=== PATIENT | female | born 1980 | race Two or more races ===

== ENCOUNTER 2017-08-11 06:47 | Emergency (ER) | payer OTHER ==
[~2017-08-11] VITALS: Ht 162.6 cm; Wt 77.1 kg
[~2017-08-11 06:47] MED LIST: ALPR.25 PO; AMOX500 PO; Antivert25 MG PO; Bactrim Ds Tab1 EACH PO; CEPH500 PO; CHLO25 PO; CLON.3 PO; Cyclobenzaprine5 MG PO; DIPH25 PO; ERYT.5TO RIGHTEYE; HYDACE5 PO; IBUPROFEN PRN; LORA1 PO; MULVITMINE PO; NAPR500 PO; ONDA4 PO; PHENTERMINE PO; POTCHL20ER PO; PRED20 PO; PROM25 PO; PROM25S PR; QUET100 PO; RANI150 PO; RXOXYACE PO; RXPROM25S PR; SULTRIDS PO; ZOLP5 PO; [UNRECOGNIZED DRUG - OTHER]
[2017-08-11] MEDS ORDERED: Mupirocin22 GM TOP (07:55)
[2017-08-11] MEDS ORDERED: Bactrim 400-801 EACH PO (07:55)
[2017-08-11] MEDS ORDERED: CEPH500 PO (07:55)
== END 2017-08-11 08:26 | disposition home or self-care (01) ==
LOC: ER 06:47
DX: L03.116 Cellulitis of left lower limb (principal); F17.210 Nicotine dependence, cigarettes, uncomplicated; Z79.899 Other long term (current) drug therapy
CPT/HCPCS: 87070; 87075; 87077; 87147; 87186; 87205; 99283

== ENCOUNTER 2020-07-04 19:11 | Emergency (ER) | payer OTHER ==
[~2020-07-04 19:11] MED LIST changes: +Bactrim 400-801 EACH PO; +Mupirocin22 GM TOP
== END 2020-07-04 19:55 | disposition left against medical advice (07) ==
LOC: ER 19:11
DX: Z53.21 Procedure and treatment not carried out due to patient leaving prior to being seen by health care provider (principal)

== ENCOUNTER → 2020-12-25 | Outpatient (CLI) | payer OTHER ==
[2020-12-28 16:11] LABS: HPV 16 Negative (Negative); HPV 18 Negative (Negative); HPV OTHER HR TYPES Negative (Negative)
[2020-12-29 00:06] LABS: CHLAMYDIA BY NAA Negative (Negative); GONOCOCCUS BY NAA Negative (Negative)
[2020-12-29 10:09] LABS: TRICH VAG BY NAA Positive (Negative)
== END ==
LOC: LAB SHORT 10:50 → LAB 10:50
PROVIDERS: Family Medicine
DX: Z12.4 Encounter for screening for malignant neoplasm of cervix (principal); Z11.59 Encounter for screening for other viral diseases
CPT/HCPCS: 87491; 87591; 87624; 87661; G0123

== ENCOUNTER 2021-03-05 00:53 | Emergency (ER) | payer OTHER ==
[~2021-03-05] VITALS: Ht 160 cm; Wt 65.8 kg
== END 2021-03-05 01:55 | disposition left against medical advice (07) ==
LOC: ER 00:53
DX: Z53.21 Procedure and treatment not carried out due to patient leaving prior to being seen by health care provider (principal)

== ENCOUNTER 2021-03-13 00:37 | Inpatient (IN) | payer OTHER ==
[~2021-03-13] VITALS: Ht 154.9 cm; Wt 62.7 kg
[2021-03-13 02:09] LABS: BASOPHILS ABSOLUTE AUTO 0.05 K/mm3 (0.00-0.23); BASOPHILS PERCENT AUTO 1 % (0-2); EOSINOPHILS ABSOLUTE AUTO 0.06 K/mm3 (0.00-0.68); EOSINOPHILS PERCENT AUTO 1 % (0-6); Hematocrit 36.3 % (33.0-51.0); Hemoglobin 12.7 g/dL (11.5-16.0); IMMATURE GRAN ABSOLUTE AUTO 0.02 K/mm3 (0.00-0.10); IMMATURE GRAN PERCENT AUTO 0 % (0-1); LYMPHOCYTES ABSOLUTE AUTO 1.62 K/mm3 (0.84-5.20); LYMPHOCYTES PERCENT AUTO 15 % (21-46); MONOCYTES ABSOLUTE AUTO 0.91 K/mm3 (0.16-1.47); MONOCYTES PERCENT AUTO 8 % (4-13); Mean Corpuscular HGB 31.5 pg (26.0-34.0); Mean Corpuscular Volume 90 fL (80-100); Mean Platelet Volume 8.8 fL (9.1-12.4); NEUTROPHILS ABSOLUTE AUTO 8.15 K/mm3 (1.96-9.15); NEUTROPHILS PERCENT AUTO 75 % (41-73); Platelet Count 245 K/mm3 (150-400); RDW Coefficient Variation 13.2 % (11.7-14.2); RDW Standard Deviation 44.2 fL (35.1-46.3); Red Blood Cell Count 4.03 M/mm3 (3.80-5.20); White Blood Cell Count 10.81 K/mm3 (4.00-11.30)
[2021-03-13 02:28] LABS: Alanine Aminotransfer (ALT/SGP 241 U/L (12-78); Albumin, Blood 3.6 g/dL (3.4-5.0); Albumin/Globulin Ratio 0.9 (0.8-1.8); Alk Phos 104 U/L (50-136); Anion Gap 7 mmol/L (6-16); Aspartate Aminotrans (AST/SGOT 226 U/L (12-37); Bilirubin, Total 0.8 mg/dL (0.1-1.0); Blood Urea Nitrogen 6 mg/dL (8-24); Bun/Creatinine Ratio 9.7 (12.0-20.0); CO2, Blood 25 mmol/L (21-32); Calcium, Blood 8.1 mg/dL (8.5-10.1); Chloride, Blood 104 mmol/L (98-108); Creatinine, Blood 0.62 mg/dL (0.40-1.00); Globulin, Blood 4.2 g/dL (2.2-4.0); Glomerular Filtration Rate >60 (60-); Glucose, Blood 102 mg/dL (70-99); Potassium, Blood 3.6 mmol/L (3.5-5.5); Sodium, Blood 136 mmol/L (136-145); Total Protein, Blood 7.8 g/dL (6.4-8.2)
--- NOTE | 2021-03-13 11:38 | NUR ---
ETHYL ALCOHOL, BLOOD RECEIVED T.O. FROM DR. TRIPATHI TO CHANGE CURRENT VAGUE ALCOHOL LAB ORDER TO BLOOD. ACCORDING TO LAB, URINE ALCOHOL IS A SEND OUT WHICH WILL TAKE SEVERAL DAYS TO RETURN. ORDER UPDATED.
[2021-03-13 11:43] LABS: U Amphetamine Screen DETECTED; U Barbituate Screen Not Detected; U Benzodiazapine Screen Not Detected; U Buprenorphine Screen Not Detected; U Cannabinoids Screen Not Detected; U Cocaine Screen Not Detected; U Methadone Screen Not Detected; U Methamphetamine Screen DETECTED; U Opiates Screen Not Detected; U Oxycodone Screen Not Detected; U Phencyclidine Screen Not Detected; U Propoxyphene Screen Not Detected
--- NOTE | 2021-03-13 18:37 | NUR ---
Shift Summary A/Ox4, has some anxiety. Patient requested to go outside to smoke. This RN explain non-smoking campus policy to patient and offered nicotine patch instead. Patient refused nicotine patient stating "I'm trying to clean my body out." CIWA score < 8 x 3. Denies headache. Up independently in room. Started mensus today, woman hygiene pads provided. Medicated for throbbing R hand pain x 2 with good effect. Patient to be NPO after midnight per Dr. Hodges for possible procedure pending effectiveness of abx. Patient informed of NPO status and verbalized understanding. C/O cough and congestion. Received T.O. from Dr. Fang for ocean spray, robitussin, and tessalon pearls. Also received T.O. to d/c continuous biox as per RT request. VSS, afebrile.
[2021-03-14 01:18] LABS: BASOPHILS ABSOLUTE AUTO 0.05 K/mm3 (0.00-0.23); BASOPHILS PERCENT AUTO 1 % (0-2); EOSINOPHILS ABSOLUTE AUTO 0.15 K/mm3 (0.00-0.68); EOSINOPHILS PERCENT AUTO 2 % (0-6); Hematocrit 38.9 % (33.0-51.0); Hemoglobin 13.1 g/dL (11.5-16.0); IMMATURE GRAN ABSOLUTE AUTO 0.02 K/mm3 (0.00-0.10); IMMATURE GRAN PERCENT AUTO 0 % (0-1); LYMPHOCYTES ABSOLUTE AUTO 1.78 K/mm3 (0.84-5.20); LYMPHOCYTES PERCENT AUTO 18 % (21-46); MONOCYTES ABSOLUTE AUTO 0.82 K/mm3 (0.16-1.47); MONOCYTES PERCENT AUTO 8 % (4-13); Mean Corpuscular HGB Conc 33.7 g/dL (31.5-36.5); Mean Corpuscular Volume 92 fL (80-100); NEUTROPHILS PERCENT AUTO 71 % (41-73); Platelet Count 229 K/mm3 (150-400); RDW Coefficient Variation 13.3 % (11.7-14.2); RDW Standard Deviation 45.2 fL (35.1-46.3); Red Blood Cell Count 4.22 M/mm3 (3.80-5.20); White Blood Cell Count 9.72 K/mm3 (4.00-11.30)
[2021-03-14 01:36] LABS: Anion Gap 7 mmol/L (6-16); Blood Urea Nitrogen 8 mg/dL (8-24); Bun/Creatinine Ratio 12.6 (12.0-20.0); CO2, Blood 26 mmol/L (21-32); Chloride, Blood 104 mmol/L (98-108); Creatinine, Blood 0.63 mg/dL (0.40-1.00); Glomerular Filtration Rate >60 (60-); Glucose, Blood 123 mg/dL (70-99); Potassium, Blood 3.7 mmol/L (3.5-5.5); Sodium, Blood 137 mmol/L (136-145)
[2021-03-14 01:44] LABS: Vancomycin, Trough 10.1 ug/mL (5.0-10.0)
--- NOTE | 2021-03-14 06:28 | NUR ---
SHIFT SUMMARY PT IS A 40 Y/O FEMALE, ADMITTED FOR R HAND CELLULITIS. SHE IS A&O X 4, INDEPENDENT IN THE ROOM. PT REPORTED EPISODE OF ANXIETY DURING THE NIGHT, AND REQUESTED MEDICATION. SHE WAS MEDICATED WITH PRN MELATONIN, AND SLEPT WELL THROUGH THE NIGHT OTHERWISE. TELE SHOWED NSR IN THE 80S. VITAL SIGNS OTHERWISE STABLE. PT DID NOT REQUIRE PAIN MEDICATION DURING THE NIGHT. NO OTHER ACUTE CHANGES IN PT CONDITION NOTED. WILL CONTINUE TO MONITOR AND TREAT PER EMAR UNTIL HAND OFF TO DAY SHIFT RN.
--- NOTE | 2021-03-14 18:07 | NUR ---
PATIENT IS AWAKE,ALERT AND ORIENTED TIME THREE.DENIES PAIN. PATIENT IS VERY, AND REQUESTING. NURSE EXPLAIN THE IMPORTANCE OF COMPLETING IV ANTIBIOTIC ORDER PER TO [facility]OM[facility]. PATIENT VERBALIZED UNDERSTANDING AND AGREE WITH THE TREATMENT PLAN. PATIENT IS NOW ON A REGULAR DIET. ADVISED NURSE AND PATIENT THAT THERE IS NO NEED FOR SURGICAL INTERVENTION TODAY, MD STATES WILL REASSESS TOMORROW.
--- NOTE | 2021-03-14 18:46 | NUR ---
PATIENT ALERT NURSE THAT SHE IS LEAVING, PATIENT MADE AWARE THAT SHE IS NOT DISCHARGE AND SHE WILL BE LEAVING AGAINST MEDICAL ADVISED. PATIENT VERBALIZED UNDESTANDING AND REQUEST AMA FORM. AND CHARGE NURSE DAVID MADE AWARE OF PATIENT REQUEST. IV AND TELE PACK REMOVED PER PROTOCOL. PATIENT WAS ADVISED TO RETURN [facility] WHEN NEEDED.
== END 2021-03-14 18:45 | disposition left against medical advice (07) | DRG 603 ==
LOC: ER 00:37 → MEDS 04:54
PROVIDERS: Family Medicine; Hospitalist; Student in an Organized Health Care Education/Training Program; ADMIT Internal Medicine
DX: L03.113 Cellulitis of right upper limb (principal); S66.324A Laceration of extensor muscle, fascia and tendon of right ring finger at wrist and hand level, initial encounter; R79.89 Other specified abnormal findings of blood chemistry; F10.10 Alcohol abuse, uncomplicated; F15.10 Other stimulant abuse, uncomplicated; F17.210 Nicotine dependence, cigarettes, uncomplicated; Z59.00 Homelessness unspecified; Z79.899 Other long term (current) drug therapy; Z86.14 Personal history of Methicillin resistant Staphylococcus aureus infection; Z28.21 Immunization not carried out because of patient refusal
CPT/HCPCS: 36415; 73201; 80048; 80053; 80202; 83605; 85025; 87040; 94760; 96365; 96366; 96375; 99284-25; A9270; G0480; J0690; J1885; J3370; J7030; J7050; Q9967

== ENCOUNTER 2021-11-14 22:40 | Inpatient (IN) | payer OTHER ==
[~2021-11-14] VITALS: Ht 154.9 cm; Wt 76.1 kg
[2021-11-14 23:59] LABS: BASOPHILS ABSOLUTE AUTO 0.08 K/mm3 (0.00-0.23); BASOPHILS PERCENT AUTO 1 % (0-2); EOSINOPHILS ABSOLUTE AUTO 0.09 K/mm3 (0.00-0.68); EOSINOPHILS PERCENT AUTO 1 % (0-6); Hematocrit 36.5 % (33.0-51.0); Hemoglobin 12.6 g/dL (11.5-16.0); IMMATURE GRAN ABSOLUTE AUTO 0.11 K/mm3 (0.00-0.10); IMMATURE GRAN PERCENT AUTO 1 % (0-1); LYMPHOCYTES PERCENT AUTO 17 % (21-46); MONOCYTES ABSOLUTE AUTO 1.08 K/mm3 (0.16-1.47); MONOCYTES PERCENT AUTO 7 % (4-13); Mean Corpuscular HGB 31.3 pg (26.0-34.0); Mean Corpuscular HGB Conc 34.5 g/dL (31.5-36.5); Mean Corpuscular Volume 91 fL (80-100); Mean Platelet Volume 8.5 fL (9.1-12.4); NEUTROPHILS ABSOLUTE AUTO 11.91 K/mm3 (1.96-9.15); NEUTROPHILS PERCENT AUTO 75 % (41-73); Platelet Count 360 K/mm3 (150-400); RDW Coefficient Variation 11.9 % (11.7-14.2); RDW Standard Deviation 39.9 fL (35.1-46.3); Red Blood Cell Count 4.02 M/mm3 (3.80-5.20); White Blood Cell Count 15.97 K/mm3 (4.00-11.30)
[2021-11-15 00:14] LABS: International Normalized Ratio 0.93; Prothrombin Time Results 9.8 Sec (9.7-11.5)
[2021-11-15 00:17] LABS: Albumin, Blood 3.1 g/dL (3.4-5.0); Albumin/Globulin Ratio 0.6 (0.8-1.8); Bilirubin, Total 0.6 mg/dL (0.1-1.0); Bun/Creatinine Ratio 8.8 (12.0-20.0); C-REACTIVE PROTEIN, EXT RANGE 10.2 mg/dL (0.000-0.300); Calcium, Blood 8.5 mg/dL (8.5-10.1); Creatinine, Blood 0.57 mg/dL (0.40-1.00); Globulin, Blood 5.5 g/dL (2.2-4.0); Magnesium, Blood 2.1 mg/dL (1.6-2.4); Potassium, Blood 3.6 mmol/L (3.5-5.5); Total Protein, Blood 8.6 g/dL (6.4-8.2)
[2021-11-15 01:57] LABS: Base Excess Venous -1.3 mmol/L; Bicarbonate Venous 23.4 mmol/L (24.0-30.0); PCO2 Venous 39.8 mmHg (38-42); pH Blood Venous 7.38 (7.34-7.37)
[2021-11-15 03:18] LABS: Influenza A, PCR NEGATIVE (NEGATIVE); Influenza B, PCR NEGATIVE (NEGATIVE); Resp Syncytial Virus, PCR NEGATIVE (NEGATIVE); SARS-Cov-2 (COVID-19) PCR, MMC NEGATIVE (NEGATIVE)
--- NOTE | 2021-11-15 05:00 | NUR ---
Pt Update Pt sleeps after arriving to room from ER. Pt arrousable with touch and this RN speaking loudly to pt. Fiance of pt answers most questions at bedside. When this RN asks pt about whether or not she consents to blood transfusion, pt appears to wake up and begin raising her voice speaking angrily to fiance at bedside. Pt tells fiance she told him to answer all the questions so she wouldn't have to keep getting woken up. Pt is agitated refuses to look or speak to this RN, when this RN tries to intervene in argument by notifying pt that she has to be asked about the blood transfusion. Pt raises voice when speaking to this RN, difficult to catch some of what pt says because she raises her voice and speaks rapidly. Pt does not want to be bothered and wants to be left to sleep. This RN leaves bedside after notifying pt and s/o that pt will be eventually moved to PCU rm 20.
[2021-11-15 06:47] LABS: BASOPHILS ABSOLUTE AUTO 0.07 K/mm3 (0.00-0.23); BASOPHILS PERCENT AUTO 1 % (0-2); EOSINOPHILS ABSOLUTE AUTO 0.23 K/mm3 (0.00-0.68); EOSINOPHILS PERCENT AUTO 2 % (0-6); Hematocrit 35.6 % (33.0-51.0); Hemoglobin 12.2 g/dL (11.5-16.0); IMMATURE GRAN ABSOLUTE AUTO 0.07 K/mm3 (0.00-0.10); IMMATURE GRAN PERCENT AUTO 1 % (0-1); LYMPHOCYTES ABSOLUTE AUTO 1.99 K/mm3 (0.84-5.20); LYMPHOCYTES PERCENT AUTO 18 % (21-46); MONOCYTES ABSOLUTE AUTO 0.93 K/mm3 (0.16-1.47); MONOCYTES PERCENT AUTO 8 % (4-13); Mean Corpuscular HGB 31.7 pg (26.0-34.0); Mean Corpuscular HGB Conc 34.3 g/dL (31.5-36.5); Mean Corpuscular Volume 93 fL (80-100); Mean Platelet Volume 8.3 fL (9.1-12.4); NEUTROPHILS ABSOLUTE AUTO 7.98 K/mm3 (1.96-9.15); NEUTROPHILS PERCENT AUTO 71 % (41-73); Platelet Count 320 K/mm3 (150-400); RDW Coefficient Variation 12.4 % (11.7-14.2); RDW Standard Deviation 41.8 fL (35.1-46.3); Red Blood Cell Count 3.85 M/mm3 (3.80-5.20); White Blood Cell Count 11.27 K/mm3 (4.00-11.30)
[2021-11-15 07:05] LABS: Albumin, Blood 2.3 g/dL (3.4-5.0); Albumin/Globulin Ratio 0.5 (0.8-1.8); Bilirubin, Total 0.5 mg/dL (0.1-1.0); Calcium, Blood 7.4 mg/dL (8.5-10.1); Creatinine, Blood 0.54 mg/dL (0.40-1.00); Globulin, Blood 4.6 g/dL (2.2-4.0); Potassium, Blood 3.8 mmol/L (3.5-5.5); Total Protein, Blood 6.9 g/dL (6.4-8.2)
--- NOTE | 2021-11-15 07:21 | NUR ---
SHIFT SUMMARY PT ORIENTED TO SITUATION, SURROUNDINGS, AND FOLLOWING INSTRUCTIONS ON ARRIVAL TO PCU FROM ER. PT APPEARS TO BE IN SEVERE PAIN W/TRANSFER OVER TO BED FROM ER [facility]. SHORTLY AFTER TRANSFER OVER, PT FALLS ASLEEP AND IS DIFFICULT TO GET ANSWERS TO QUESTIONS FROM. SAYS YES AND NO AND SHAKES HEAD YES AND NO BUT DOES NOT ANSWER VERBALLY TO MOST QUESTIONS. ZENON' TAKES OVER ANSWERING QUESTIONS AT BEDSIDE AND ASSISTING WITH PROVIDING HX. PT BECOMES EXTREMELY AGITATED WHEN THIS RN FINISHES QUESTIONING FOR ADMISSION WITH BLOOD TRANSFUSION QUESTIONS, PT BECOMES ANGRY AND VERBALLY LASHES OUT TO ZENON' ACCUSING HIM OF NOT ANSWERING QUESTIONS FOR HER LIKE HE IS SUPPOSED TO SO SHE WONT BE BOTHERED AND CAN REST. THIS RN LEAVES PT TO REST FOLLOWING OUTBURST. WHEN CHECKING BACK, PT CONTINUES TO SLEEP, NO VISIBLE SIGNS OF WITHDRAWAL WITNESSED BY THIS RN. ZENON STATES THAT PT WILL BECOME SHAKEY IN THE MORNING AFTER DRINKING USUALLY. LAST DRINK WAS AT AROUND 0000 PER ZENON'. PT LASHES OUT AGAIN AT [facility] WHEN THIS RN AND DAVID FROM LAB TO BEDSIDE FOR MORNING LAB DRAW. BP STABLE, HR 90'S WHILE LEFT UNDISTURBED IN ROOM WITH ZENON. PT HAD DENIED CP. THIS RN ABLE TO PALPATE LLE FOR PULSE AND FEEL EDEMA WITHOUT MUCH OF A RESPONSE FROM PT WHILE PT ASLEEP. PT SNORES WHILE ASLEEP, ZENON' STATES THIS IS BASELINE AND PT DOES NOT USE CPAP. RR 18-24. PT'S ZENON REPORTS PT HAS A HX OF METH USE. STATES SHE USES SEVERAL TIMES A MONTH BUT HAS BEEN CUTTING BACK. ZENON ALSO STATES THAT PT HAS A HX OF BIPOLAR.
--- NOTE | 2021-11-15 10:19 | NUR ---
Am note Pt alert, crying a times, irritable; ciwa 7; oriented to person, place and family, unwilling to answer additional orientations questions at this time. Pt reporting 9/10 pain to lle, medicated with dilaudid 0.5mg iv with positive results. Pt appears to be sleeping at this time. Pt denies chest pain/pressure, sob, nasuea, dizziness and numb/tingling at this time. Pt tele sinus tach, bp stable. Spo2 >90% on ra, breathing even and unlabored. Abd soft nontender, denies nausea at this time. Vss. No other acute changes noted. Will continue to monitor. Plans for surgery this afternoon, pt remains npo.
--- NOTE | 2021-11-15 17:34 | NUR ---
Shift Summary Pt continues to report pain to lle, medicated per orders. Pt ciwa 6-8 t/o shift. Pt appears to be sleeping intermittently t/o shift. Pt remain npo t/o shift and taken to surgery this evening. Vss. No other acute changes noted. Will continue to monitor unitl report given to oncoming rn.
[2021-11-16 02:23] LABS: BASOPHILS ABSOLUTE AUTO 0.03 K/mm3 (0.00-0.23); BASOPHILS PERCENT AUTO 0 % (0-2); EOSINOPHILS PERCENT AUTO 0 % (0-6); Hematocrit 33.9 % (33.0-51.0); Hemoglobin 11.7 g/dL (11.5-16.0); IMMATURE GRAN ABSOLUTE AUTO 0.05 K/mm3 (0.00-0.10); IMMATURE GRAN PERCENT AUTO 0 % (0-1); LYMPHOCYTES ABSOLUTE AUTO 0.93 K/mm3 (0.84-5.20); LYMPHOCYTES PERCENT AUTO 8 % (21-46); MONOCYTES ABSOLUTE AUTO 0.21 K/mm3 (0.16-1.47); MONOCYTES PERCENT AUTO 2 % (4-13); Mean Corpuscular HGB 31.8 pg (26.0-34.0); Mean Corpuscular HGB Conc 34.5 g/dL (31.5-36.5); Mean Corpuscular Volume 92 fL (80-100); Mean Platelet Volume 8.5 fL (9.1-12.4); NEUTROPHILS ABSOLUTE AUTO 11.12 K/mm3 (1.96-9.15); NEUTROPHILS PERCENT AUTO 90 % (41-73); Platelet Count 329 K/mm3 (150-400); RDW Coefficient Variation 11.9 % (11.7-14.2); RDW Standard Deviation 40.8 fL (35.1-46.3); Red Blood Cell Count 3.68 M/mm3 (3.80-5.20); White Blood Cell Count 12.34 K/mm3 (4.00-11.30)
[2021-11-16 02:40] LABS: Bun/Creatinine Ratio 16.8 (12.0-20.0); Calcium, Blood 8.1 mg/dL (8.5-10.1); Creatinine, Blood 0.59 mg/dL (0.40-1.00); Potassium, Blood 3.9 mmol/L (3.5-5.5)
--- NOTE | 2021-11-16 07:20 | NUR ---
SHIFT SUMMARY PT AOX4 T/O SHIFT. PT COOPERATIVE AND PLEASANT WITH CARE. WITHDRAWAL SX WELL CONTROLLED WITH LIBIRUM AND X1 DOSE OF ATIVAN. PT SLEEPS FOLLOWING DOSE OF ATIVAN THIS AM. S/O SLEEPS IN CHAIR AT BEDSIDE. PT CALLS APPROPRIATELY WITH CALL LIGHT TO GET UP TO BEDSIDE COMMODE WITH ASSIST. DENIES ALTERED SENSATION IN LLE. STATES PAIN IS BETTER POST-OP, STATES PAIN CHANGED FROM BURNING OF YESTERDAY TO MORE OF AN ACHING PAIN. PAIN WELL CONTROLLED PER PT TOLERABLE PAIN LEVEL WITH PO NORCO. PT IS OPTIMISTIC TO BE SOBER AFTER LEAVING HOSPITAL AND VERBALIZES DESIRE TO BE CLEAN. PT STATES THIS INFECTION HAS BEEN A GOOD OPPORTUNITY FOR HER TO GET SOBER. PT ABLE TO TRANSFER TO BEDSIDE COMMODE WITHOUT WEIGHT BEARING ON L LEG AND TOLERATES WOUND VAC T/O SHIFT. SWELLING APPEARS DECREASED IN LEG FROM PRIOR SHIFT. PT HR MAINTAINS IN 90'S. VSS T/O SHIFT.
--- NOTE | 2021-11-16 08:43 | NUR ---
Am note Pt responding to verbal stimuli, oriented to person, place, event and time. Pt slow to respond, falling back to sleep at times. Pt up with 1 person assist to bsc, pt not putting full weight on left leg. Pt denies pain, chest pain/pressure, nausea, dizziness and numb/tingling. Tele sinus 80-90's at rest, touching 100's with activity, bp stable. Ls clear, diminished to bases, spo2 >90% on ra. Abd soft nontender with normoactive bt. Left leg less swollen then previous shift, wound vac with rober bandage in place. Pt receiving iv antibiotics. CIWA score of 8, medicated with librium. Other vss. No other acute changes noted. Will continue to monitor.
--- NOTE | 2021-11-16 17:08 | NUR ---
Shift Summary Pt more alert this afternoon and evening. CIWA 8 or less t/o shift. Medicated pt for pain to left lower extremity. Wound vac in place. Per Dr Polk, no tele and no CBGs at this time. Other Vss. No other acute changes noted. Will continue to monitor unitl report given to oncoming rn.
--- NOTE | 2021-11-17 05:01 | NUR ---
SHIFT SUMMARY PT A&OX4, PLEASANT AND COOPERATIVE. NO ACUTE CHANGES, VSS. MEDICATED FOR PAIN ONCE WITH TORADOL/TYLENOL. SBA TO BSC. TOLERATING PO INTAKE, NO N/V. CIWA 8 OR LESS T/O SHIFT. CONTINUED ORDERED ABX. WOUND VAC IN PLACE AND COMPRESSED. CALLS APPROPRIATELY, CALL LIGHT WITHIN REACH.
--- NOTE | 2021-11-17 09:42 | NUR ---
WOUND VAC DRESSING CHANGED. PHOTO AND ASSESSMENT IN HARD CHART. ONE PIECE OF BLACK FOAM REMOVED. MEPITEL TO EXPOSED TENDON WITH ONE PIECE OF BLACK FOAM APPLIED. VAC SET TO 120 MMHG. CANISTER NOT CHANGED. PT TOLERATED WELL
--- NOTE | 2021-11-17 10:59 | NUR ---
RECIEVED PT REPORT AWAITING TRASFER FROM [facility]
--- NOTE | 2021-11-17 11:28 | NUR ---
Transfer note Assumed care of patient at approx 0700. Alert, oriented x4. CIWA <8 this am. Pt reporting pain to lle, medicated X1 with norco, pt asking for additional pain medciations, offered toradol, but pt declined. Pt denies chest pain/pressure, sob, nausea, dizziness and numb/tingling. Jenny to room this am, wound vac dressing changed. Vss. No other acute changes noted. Report given to tori Waldrop assuming care of patient. Pt transfered to room 224 at 1110.
--- NOTE | 2021-11-17 17:42 | NUR ---
SHIFT SUMMARY PT A&OX4 AND IN PLEASENT MOOD. POD #2 I&D AND WOUND VAC PLACEMENT LLE. DIEGO @ BEDSIDE T/O SHIFT, PER PT TRANSFER REPORT VIA PCU DIEGO HAS BEEN ASSISTING W/ CARE AND "KEEPING PT CALM". PAIN MEDICATED PER EMAR. TOLERATING PO INTAKE WELL, DENIES N/V. SHOWERED THIS SHIFT. WOUND VAC DRESSING CHANGED THIS AM-GOOD SUCTION AND DRAINING WELL, LLE REDDNESS AND SWELLING NOTED. VSS. CDIFF PANEL ORDERED DUE TO WATERY STOOL. CALL LIGHT W/IN REACH. SBA.
[2021-11-17 22:35] LABS: C DIFFICILE DNA NEGATIVE (Negative)
--- NOTE | 2021-11-18 04:35 | NUR ---
POD2 FOR AN I.N.D OF THE LLE AND WOUND VAC PLACEMENT. VSS. WOUND VAC REMAINS COMPRESSED, MINIMAL DRAINAGE NOTED. LLE REMAINS RED, EDEDAMOUS, AND TENDER. SENSATION AND CIRCULATION REMAINS INTACT PT SLEPT WELL T/O THE NIGHT. MEDICATED FOR PAIN WITH TORADOL. PT C/O MULTIPLE BOUTS OF LIQUID STOOL, STOOL SAMPLE RESULTS WERE NEGATIVE FOR CDIFF. VOIDING W/O DIFFICULTY. PT AMBULATED WITH MINIMAL ASSISTANCE T/O THE NIGHT. LASHAWNWA PERFORMED TONIGHT WITH A SCORE OF 0. PLAN FOR THE PT TO D/C TODAY TO HER BOYFRIENDS SISTERS HOUSE WITH ORAL ANTIBOTICS. THE PATIENT IS CURRENTLY SLEEPING, IN NO DISTRESS, CALL LIGHT IN REACH.
[2021-11-18 13:13] LABS: BASOPHILS ABSOLUTE AUTO 0.08 K/mm3 (0.00-0.23); BASOPHILS PERCENT AUTO 1 % (0-2); EOSINOPHILS ABSOLUTE AUTO 0.29 K/mm3 (0.00-0.68); EOSINOPHILS PERCENT AUTO 4 % (0-6); Hematocrit 36.6 % (33.0-51.0); Hemoglobin 12.2 g/dL (11.5-16.0); IMMATURE GRAN ABSOLUTE AUTO 0.18 K/mm3 (0.00-0.10); IMMATURE GRAN PERCENT AUTO 2 % (0-1); LYMPHOCYTES ABSOLUTE AUTO 2.91 K/mm3 (0.84-5.20); LYMPHOCYTES PERCENT AUTO 35 % (21-46); MONOCYTES ABSOLUTE AUTO 0.58 K/mm3 (0.16-1.47); MONOCYTES PERCENT AUTO 7 % (4-13); Mean Corpuscular HGB 31.3 pg (26.0-34.0); Mean Corpuscular HGB Conc 33.3 g/dL (31.5-36.5); Mean Corpuscular Volume 94 fL (80-100); NEUTROPHILS ABSOLUTE AUTO 4.29 K/mm3 (1.96-9.15); NEUTROPHILS PERCENT AUTO 51 % (41-73); Platelet Count 377 K/mm3 (150-400); RDW Coefficient Variation 12.2 % (11.7-14.2); RDW Standard Deviation 41.8 fL (35.1-46.3); White Blood Cell Count 8.33 K/mm3 (4.00-11.30)
--- NOTE | 2021-11-18 17:51 | NUR ---
SHIFT SUMMARY POD 3 I&D LEFT LEG WOUND VAC PATENT AND FOAM COMPRESSED DURING SHIFT. PT LEFT FOOT VERY SWOLLEN, REDNESS AROUND WOUND VAC SITE. SPOKE WITH DR. PATEL, ORDERS RECIEVED FOR CT SCAN WITH CONTRAST. PATIENT HAS BEEN IN BED FOR MOST OF SHIFT REPORTS SIGNIFICANT INCREASE IN PAIN WHEN SHE ATTEMPTS TO STAND AND TRANSFER. TOLERATING PO WELL. MEDICATION PER EMAR, PT REPORTS TOLERABLE.
--- NOTE | 2021-11-19 04:08 | NUR ---
SHIFT SUMMARY NO ACUTE CHANGES THIS SHIFT. VSS. WOUND VAC TO LEFT LEG REMAINS INTACT AND COMPRESSED. CONTINUING TO ENCOURAGE ELEVATION. PAIN MANAGED WITH TORADOL/PERCOCET PER ORDERS. ROSI REG DIET. INDEP TO BSC. CALL LIGHT WITHIN REACH.
[2021-11-19 16:24] LABS: SARS-Cov-2 (COVID-19) PCR, MMC NEGATIVE (NEGATIVE)
--- NOTE | 2021-11-19 16:49 | NUR ---
DISCHARGE SUMMARY PATIENT ALERT AND ORIENTED. ANXIOUS AT TIMES BUT EASILY REASSURES. TOLERATING REGULAR DIET AND LIQUIDS. IND TO BSC. WOUND VAC TO LLE, CHANGED THIS SHIFT BY GYMNASTICS COACH. LLE AROUND WOUND IS RED AND SWOLLEN. CONTINUE IV ABX. PAIN CONTROLLED WITH PO PAIN MEDS. DISCHARGED TO SNF AT 1640. REPORT CALLED TO SNF RN. LEFT UNIT VIA MEDICAL TRANSPORT.
--- NOTE | 2021-11-19 17:25 | NUR ---
WOUND VAC DRESSING CHANGED. ONE PIECE MEPITEL ONE PIECE BLACK FOAM REMOVED. ONE PIECE MEPITEL AND ONE PIECE OF BLACK FOAM REAPPLIED. VAC SET TO 120 MMHG. PT TOLERATED WELL.
== END 2021-11-19 16:40 | DRG 853 ==
LOC: ER 22:40 → PCU 11-15 03:14 → SURS 11-15 03:14 → PCU 11-15 04:40 → SURS 11-17 11:51
PROVIDERS: Family Medicine; Internal Medicine; Orthopaedic Surgery; Student in an Organized Health Care Education/Training Program; ADMIT Internal Medicine
PROC: 3E03329 Introduction of Other Anti-infective into Peripheral Vein, Percutaneous Approach (ICD-10-PCS; 2021-11-15)
PROC: 0JBP0ZZ Excision of Left Lower Leg Subcutaneous Tissue and Fascia, Open Approach (ICD-10-PCS; principal; 2021-11-15 16:00)
DX: A40.0 Sepsis due to streptococcus, group A (principal); M72.6 Necrotizing fasciitis; E87.1 Hypo-osmolality and hyponatremia; L03.116 Cellulitis of left lower limb; F10.239 Alcohol dependence with withdrawal, unspecified; I96 Gangrene, not elsewhere classified; Z20.822 Contact with and (suspected) exposure to COVID-19; B19.20 Unspecified viral hepatitis C without hepatic coma; F17.210 Nicotine dependence, cigarettes, uncomplicated; R73.9 Hyperglycemia, unspecified; F15.90 Other stimulant use, unspecified, uncomplicated; Z79.899 Other long term (current) drug therapy; Z79.2 Long term (current) use of antibiotics; Z98.890 Other specified postprocedural states
CPT/HCPCS: 0241U; 36415; 73701; 80048; 80053; 80202; 81025; 82803; 82947; 83036; 83605; 83735; 84145; 85025; 85610; 85651; 85730; 86140; 86850; 86900; 86901; 87040; 87070; 87075; 87147; 87205; 87493; 93005; 93010; 94762; 96365; 96366; 96367; 96375; 99285-25; A9270; J0690; J1100; J1170; J1650; J1885; J2060; J2405; J2543; J2704; J3010; J3370; J3411; J7030; J7050; J7120; Q9967; U0004

== ENCOUNTER 2021-11-19 21:27 | Emergency (ER) | payer OTHER ==
[~2021-11-19] VITALS: Ht 154.9 cm; Wt 72.6 kg
== END 2021-11-20 00:36 | disposition home or self-care (01) ==
LOC: ER 21:27
DX: Z48.00 Encounter for change or removal of nonsurgical wound dressing (principal); F17.200 Nicotine dependence, unspecified, uncomplicated
CPT/HCPCS: 99281

== ENCOUNTER 2022-01-01 19:12 | Emergency (ER) | payer OTHER ==
[2022-01-02] MEDS ORDERED: GABA300 PO (00:16)
[2022-01-02] MEDS ORDERED: CEPH500 PO (00:16)
[2022-01-02] MEDS ORDERED: IBUP800 PO (00:16)
== END 2022-01-02 00:39 | disposition home or self-care (01) ==
DX: L03.116 Cellulitis of left lower limb (principal); L97.929 Non-pressure chronic ulcer of unspecified part of left lower leg with unspecified severity; F17.200 Nicotine dependence, unspecified, uncomplicated

== ENCOUNTER 2022-01-23 15:00 | Inpatient (IN) | payer OTHER ==
[~2022-01-23] VITALS: Ht 152.4 cm; Wt 78.0 kg
[~2022-01-23 15:00] MED LIST changes: +GABA300 PO; +IBUP800 PO
[2022-01-23 15:52] LABS: BASOPHILS ABSOLUTE AUTO 0.05 K/mm3 (0.00-0.23); BASOPHILS PERCENT AUTO 0 % (0-2); EOSINOPHILS ABSOLUTE AUTO 0.09 K/mm3 (0.00-0.68); EOSINOPHILS PERCENT AUTO 1 % (0-6); Hemoglobin 12.2 g/dL (11.5-16.0); IMMATURE GRAN ABSOLUTE AUTO 0.06 K/mm3 (0.00-0.10); IMMATURE GRAN PERCENT AUTO 0 % (0-1); LYMPHOCYTES ABSOLUTE AUTO 1.75 K/mm3 (0.84-5.20); LYMPHOCYTES PERCENT AUTO 13 % (21-46); MONOCYTES ABSOLUTE AUTO 1.17 K/mm3 (0.16-1.47); MONOCYTES PERCENT AUTO 9 % (4-13); Mean Corpuscular HGB 31.2 pg (26.0-34.0); Mean Corpuscular HGB Conc 34.9 g/dL (31.5-36.5); Mean Corpuscular Volume 90 fL (80-100); Mean Platelet Volume 8.3 fL (9.1-12.4); NEUTROPHILS ABSOLUTE AUTO 10.41 K/mm3 (1.96-9.15); NEUTROPHILS PERCENT AUTO 77 % (41-73); Platelet Count 362 K/mm3 (150-400); RDW Coefficient Variation 12.3 % (11.7-14.2); Red Blood Cell Count 3.91 M/mm3 (3.80-5.20); White Blood Cell Count 13.53 K/mm3 (4.00-11.30)
[2022-01-23 16:06] LABS: Albumin/Globulin Ratio 0.6 (0.8-1.8); Bilirubin, Total 0.4 mg/dL (0.1-1.0); Bun/Creatinine Ratio 11.6 (12.0-20.0); Calcium, Blood 8.2 mg/dL (8.5-10.1); Creatinine, Blood 0.6 mg/dL (0.40-1.00); Globulin, Blood 4.9 g/dL (2.2-4.0); Potassium, Blood 3.9 mmol/L (3.5-5.5); Total Protein, Blood 7.9 g/dL (6.4-8.2)
[2022-01-24 05:48] LABS: Prothrombin Time Results 10.5 Sec (9.7-11.5)
[2022-01-24 06:02] LABS: Albumin, Blood 2.4 g/dL (3.4-5.0); Albumin/Globulin Ratio 0.5 (0.8-1.8); Bilirubin, Total 0.5 mg/dL (0.1-1.0); Bun/Creatinine Ratio 12.8 (12.0-20.0); Calcium, Blood 7.9 mg/dL (8.5-10.1); Creatinine, Blood 0.62 mg/dL (0.40-1.00); Globulin, Blood 4.4 g/dL (2.2-4.0); Potassium, Blood 3.9 mmol/L (3.5-5.5); Total Protein, Blood 6.8 g/dL (6.4-8.2)
[2022-01-24 06:40] LABS: BASOPHILS ABSOLUTE AUTO 0.04 K/mm3 (0.00-0.23); BASOPHILS PERCENT AUTO 0 % (0-2); EOSINOPHILS ABSOLUTE AUTO 0.17 K/mm3 (0.00-0.68); EOSINOPHILS PERCENT AUTO 2 % (0-6); Hematocrit 34.3 % (33.0-51.0); Hemoglobin 11.5 g/dL (11.5-16.0); IMMATURE GRAN ABSOLUTE AUTO 0.06 K/mm3 (0.00-0.10); IMMATURE GRAN PERCENT AUTO 1 % (0-1); LYMPHOCYTES ABSOLUTE AUTO 2.46 K/mm3 (0.84-5.20); LYMPHOCYTES PERCENT AUTO 24 % (21-46); MONOCYTES ABSOLUTE AUTO 0.99 K/mm3 (0.16-1.47); MONOCYTES PERCENT AUTO 10 % (4-13); Mean Corpuscular HGB 30.9 pg (26.0-34.0); Mean Corpuscular HGB Conc 33.5 g/dL (31.5-36.5); Mean Corpuscular Volume 92 fL (80-100); Mean Platelet Volume 8.5 fL (9.1-12.4); NEUTROPHILS ABSOLUTE AUTO 6.51 K/mm3 (1.96-9.15); NEUTROPHILS PERCENT AUTO 64 % (41-73); Platelet Count 332 K/mm3 (150-400); RDW Coefficient Variation 12.5 % (11.7-14.2); RDW Standard Deviation 42.4 fL (35.1-46.3); Red Blood Cell Count 3.72 M/mm3 (3.80-5.20); White Blood Cell Count 10.23 K/mm3 (4.00-11.30)
--- NOTE | 2022-01-24 19:25 | NUR ---
PT ADMITTED FROM ED TO ROOM 341 AT 1624. A/O X4, AMBULATED TO BATHROOM AND THAN TO BED, STEADY ON FEET. ORIENTED TO ROOM SET UP AND SAFETY. LLE WRAPPED IN KERLEX. PT ASKED FOR CHEESE AND CRACKERS AND A PEPSI. PT'S S.O PRESENT AND ATTENTIVE TO PT'S NEEDS.
--- NOTE | 2022-01-24 19:27 | NUR ---
SUMMARY- PT ADMITTED 1623. A/O X4, INDEPENDANT IN ROOM. S.O. IN ROOM AND STAYING THE NIGHT FOR THE PT'S SUPPORT RELATED TO PTSD AND ANXIETY. DRESSING CHANGED 1814, PREMEDICATED WITH FENT 25MCG. PICTURES TAKEN. 2 OPEN ULCERATIONS, PROX WOUND 7X6CM, PINK BEEFY WOUND BED NO ESCHAR. 2ND ULCERATION APPROX 4X6CM 95% YELLOW ESCHAR. SKIN SURROUNDING BOTH WOUNDS ERYTHEMATIC, PURPLE WITH EDEMA +2-3. REINFORCED STEEL PLACING SUPERVISOR <3SEC. STATES MILD NUMBNESS IN FOOT. PPP. PT TOLERATING FOOD AND FLUIDS. AWARE SHE IS TO BE NOP AFTER MIDNIGHT. FAMILY LAW MEDIATOR UNAVAILABLE, THIS RN REDRESSED WITH A WET-DRY, COVERED WITH CHICKEN SKIN. DR SARMIENTO TO [place] IN THE AM.
[2022-01-24 19:30] LABS: Vancomycin, Trough 15.5 ug/mL (5.0-10.0)
--- NOTE | 2022-01-25 07:16 | NUR ---
Shift Summary Pt NPO since 199 pending surgery consult evaluation. C/O pain in LLE, especially during and after ambulation, medicated per EMAR. Boyfriend stayed the night in the room to help with anxiety, OK'd by charge nurse. No S/S of ETOH withdrawal t/o the night. LLE wound dressing C/D/I. Rcvd IV Vancomyacin and NS @ 75 as ordered. VSS, pleasant and cooperative with care.
--- NOTE | 2022-01-25 13:11 | NUR ---
History, Chart, Medications and Allergies reviewed before start of procedure.Lungs clear T/O to Auscultation. Patient confirms NPO status and agrees with scheduled surgery. Pre-Op teaching done. Pt verbalizes understanding.
--- NOTE | 2022-01-25 14:37 | NUR ---
01/25/22 1437 Agatha Roberts PT ON SCHEDULED ANTIBIOTICS AND RECIEVED PRIOR TO ARRIVAL TO OR.
--- NOTE | 2022-01-25 20:20 | NUR ---
PT RETURNED PROM PACU 1540, PT GROGGY BUT ALERT AND VERBAL, STATES PAIN IS TOLERABLE. OBTAINED VS AND WILL CONT WITH POST PROCEDURAL VS FOR 24HRS. WOUND VAC IN PLACE AND PATENT.
--- NOTE | 2022-01-25 20:21 | NUR ---
SUMMARY- PT HAD I&D TODAY CONNECTED TO WOUND VAC. VSS. PAIN MANAGED AT FIRST WITH FENT THAN SWITCHED TO ORAL OXYCOCONE 10MG, SO FAR EFFECTIVE. PT TOLERATING FOOD AND FLUIDS. VOIDING WITHOUT DIFFICULTY. USES CALL LIGHT TO MAKE NEEDS KNOWN. REPORT TO TARYN OSWALD RN.
[2022-01-26 05:09] LABS: BASOPHILS ABSOLUTE AUTO 0.03 K/mm3 (0.00-0.23); BASOPHILS PERCENT AUTO 1 % (0-2); EOSINOPHILS ABSOLUTE AUTO 0.32 K/mm3 (0.00-0.68); EOSINOPHILS PERCENT AUTO 5 % (0-6); Hematocrit 34.6 % (33.0-51.0); Hemoglobin 11.5 g/dL (11.5-16.0); IMMATURE GRAN ABSOLUTE AUTO 0.05 K/mm3 (0.00-0.10); IMMATURE GRAN PERCENT AUTO 1 % (0-1); LYMPHOCYTES ABSOLUTE AUTO 2.29 K/mm3 (0.84-5.20); LYMPHOCYTES PERCENT AUTO 37 % (21-46); MONOCYTES ABSOLUTE AUTO 0.56 K/mm3 (0.16-1.47); MONOCYTES PERCENT AUTO 9 % (4-13); Mean Corpuscular HGB 30.6 pg (26.0-34.0); Mean Corpuscular HGB Conc 33.2 g/dL (31.5-36.5); Mean Corpuscular Volume 92 fL (80-100); Mean Platelet Volume 8.1 fL (9.1-12.4); NEUTROPHILS ABSOLUTE AUTO 2.98 K/mm3 (1.96-9.15); NEUTROPHILS PERCENT AUTO 48 % (41-73); Platelet Count 342 K/mm3 (150-400); RDW Standard Deviation 40.8 fL (35.1-46.3); Red Blood Cell Count 3.76 M/mm3 (3.80-5.20); White Blood Cell Count 6.23 K/mm3 (4.00-11.30)
[2022-01-26 05:38] LABS: Bun/Creatinine Ratio 11.5 (12.0-20.0); Calcium, Blood 8.3 mg/dL (8.5-10.1); Creatinine, Blood 0.7 mg/dL (0.40-1.00); Potassium, Blood 3.6 mmol/L (3.5-5.5)
--- NOTE | 2022-01-26 06:38 | NUR ---
Shift Summary Pt returned from I and D surgery during the day, wound vac is in place. Wound vac had a leak early on in the shift, leak was fixed. Pt rcvd IV Toridol which was highly effective at relieving her LLE pain, and then recieved 10mg Oxy towards the end of the shift. Pt had a strong appitite and tolerated snacks well. Rcvd IV Vancomyacin. Q4 post op vital signs, VSS. AoX4, independent in room, pleasant and cooperative with care.
[2022-01-26 11:45] LABS: Vancomycin, Trough 20.3 ug/mL (5.0-10.0)
--- NOTE | 2022-01-26 15:41 | NUR ---
REPORT GIVEN TO CORRINE SIM
--- NOTE | 2022-01-27 04:21 | NUR ---
SHIFT SUMMARY: Pt A/Ox4 and call light appropriate. She reports pain in her LLE that is severe. PRN oxy and fentanyl given per emar. She denies numbness/tingling in LLE, wound vac appears intact, skin intact and warm to touch. Her left foot has slight swelling, pedal pulse intact. Vanco given per emar. She is independant in her room. Voiding adequate amounts.
--- NOTE | 2022-01-27 13:43 | NUR ---
WOUND CARE WOUND CARE CLINIC WILL BE HERE IN THE MORNING TO CHANGE WOUND VAC AND TAKE PHOTOS. CONTINUE POC.
--- NOTE | 2022-01-27 17:26 | NUR ---
EVENING NOTE PT RESTING QUIETLY WITH BOYFRIEND. VSS. MEDICATED FOR PAIN X2 WITH OXYCINTIN. SHE REFUSED THE ADDITION OF TYLENOL. LEFT LE WOUND VAC INTACT. PLAN TO CHANGE OUT TOMORROW WITH PICTURES. GOOD APPETITE. LUNGS DECREASED T/O. RA. UP TO BATHROOM AD FILOMENA. DR SARMIENTO SAW HER EARLIER. NO NEW ORDERS. CONTINUE POC.
[2022-01-27 19:27] LABS: Vancomycin, Trough 12.9 ug/mL (5.0-10.0)
--- NOTE | 2022-01-28 04:23 | NUR ---
SHIFT SUMMARY: Pt A/Ox4 and call light appropriate. Overnight pt had moderate-severe pain, she recieved oxy Q4h as needed. Wound vac has minimal output. Denies numbness/tingling in LLE. Left foot is +1 edema, pedal pulse intact. She is hoping to d/c today.
--- NOTE | 2022-01-28 12:53 | NUR ---
WOUND CARE WOUND VAC DRESSING CHANGED TODAY. PT PREMEDICATED WITH IV PAIN MEDICATION. SHE DID NOT TOLERATE DRESSING REMOVAL WELL. LIDOCAINE APPLIED TO WOUND BED AND ALLOWED SIT FOR 15 MIN. DRESSING THEN REMOVED. PT STILL PAINFUL BUT AT A TOLERABLE LEVEL. TWO PIECES OF BLACK FOAM REMOVED, WOUND BEDS CLEANSED WITH NS AND THREE PIECES OF BLACK FOAM REAPPLIED. VAC SET TO CONTINUOUS 120 MMHG
--- NOTE | 2022-01-29 07:35 | NUR ---
SHIFT SUMMARY A&O X4, VSS. PAIN MANAGE WITH PRN OXY. TOLERATING WELL. INDEPENDENT WITH FWW IN ROOM. WOUND VAC DRSG C/D/I. RECEIVING SCHEDULED IV VANC. SIGNIFICANT OTHER AT BEDSIDE.
--- NOTE | 2022-01-29 08:00 | NUR ---
pt laying in bed awake a/ox3, complains her iv keeps beeping, the site is tender, will have another placed, lungs are clear t/o, resp even and unlabored, no cough noted, hrr, no edema noted, ppp +2, btx4, reports bm last night, skin has wound vac to lle, site is clear and no leakes noted, maew, up indep, fabiano, medicated for pain, call light in reach.
[2022-01-29 12:19] LABS: Creatinine, Blood 0.71 mg/dL (0.40-1.00); Vancomycin, Trough 18.7 ug/mL (5.0-10.0)
--- NOTE | 2022-01-29 18:20 | NUR ---
no acute changes this shift. call light in reach. boyfriend has been in room all day.
--- NOTE | 2022-01-29 22:50 | NUR ---
THIS RN WAS ALERTED BY ANOTHER STAFF MEMBER THAT THE PATIENT HAD JUST BEEN SEEN ENTERING THE ELEVATOR AT APPROX 1930; JUST AFTER SHIFT CHANGE. THIS RN ALERTED SECURITY AND FOUND PATIENT SMOKING WITH HER SIGNIFICANT OTHER (S.O.) IN HIS CAR. S.O. STATED HE WOULD BRING PATIENT BACK INSIDE WHEN THEY WERE DONE SMOKING; THIS RN REPLIED THAT THE PATIENT NEEDED TO COME BACK INSIDE IMMEDIATELY AND INFORMED S.O. THAT VISITING HOURS WERE OVER AND REASSURED S.O. THAT HE COULD RETURN IN THE MORNING. PATIENT STATED THAT SHE WOULD ONLY COME INSIDE LONG ENOUGH TO REMOVE WOUND VAC MACHINE AND POWERGLIDE IV. THIS RN ENCOURAGED PATIENT TO STAY HOSPITALIZED AND CONTINUE TREATMENT; HOWEVER; PATIENT SIGNED AMA FORM AND SECURITY INTELLIGENCE ANALYST REMOVED IV AND WOUND VAC. PATIENT REFUSED WOUND VAC DRSG/TUBING REMOVAL - ONLY MACHINE REMOVED FROM LLE. PATIENT ASSISTED TO ER DOORS WITH ALL BELONGINGS. PATIENT DENIES ANY BELONGINGS LEFT IN SAFE AT THIS TIME.
== END 2022-01-29 20:03 | disposition left against medical advice (07) | DRG 854 ==
LOC: ER 15:00 → ERHOLD 20:04 → MEDS 20:04
PROVIDERS: Orthopaedic Surgery; Physician Assistant; Student in an Organized Health Care Education/Training Program; ADMIT Internal Medicine
PROC: 3E03329 Introduction of Other Anti-infective into Peripheral Vein, Percutaneous Approach (ICD-10-PCS; principal; 2022-01-23)
PROC: 0JBP0ZZ Excision of Left Lower Leg Subcutaneous Tissue and Fascia, Open Approach (ICD-10-PCS; 2022-01-25)
PROC: 0J9P0ZZ Drainage of Left Lower Leg Subcutaneous Tissue and Fascia, Open Approach (ICD-10-PCS; 2022-01-25)
DX: A40.0 Sepsis due to streptococcus, group A (principal); F10.239 Alcohol dependence with withdrawal, unspecified; L03.116 Cellulitis of left lower limb; L97.929 Non-pressure chronic ulcer of unspecified part of left lower leg with unspecified severity; A41.02 Sepsis due to Methicillin resistant Staphylococcus aureus; F15.10 Other stimulant abuse, uncomplicated; B19.20 Unspecified viral hepatitis C without hepatic coma; Z98.890 Other specified postprocedural states; Z71.41 Alcohol abuse counseling and surveillance of alcoholic; Z91.14 Patient's other noncompliance with medication regimen; Z79.2 Long term (current) use of antibiotics; Z79.899 Other long term (current) drug therapy
CPT/HCPCS: 36415; 73700; 80048; 80053; 80202; 82565; 83605; 85025; 85610; 85651; 87040; 87070; 87075; 87077; 87147; 87186; 87205; 96361; 96374; 96375; 99285-25; A9270; J1885; J2060; J2250; J2405; J2704; J3010; J3370; J7030; J7050; J7120

== ENCOUNTER 2022-02-08 10:36 | Emergency (ER) | payer OTHER ==
[~2022-02-08] VITALS: Ht 162.6 cm; Wt 68.0 kg
[2022-02-08] MEDS ORDERED: SULTRIDS PO (11:14)
[2022-02-08] MEDS ORDERED: CEPH500 PO (11:14)
[2022-02-08] MEDS ORDERED: IBUP800 PO (11:15)
[2022-02-08] MEDS ORDERED: GABA300 PO (12:41)
== END 2022-02-08 14:01 | disposition home or self-care (01) ==
LOC: ER 10:36
DX: L03.116 Cellulitis of left lower limb (principal); L97.829 Non-pressure chronic ulcer of other part of left lower leg with unspecified severity; F15.90 Other stimulant use, unspecified, uncomplicated; Z79.899 Other long term (current) drug therapy; Z87.891 Personal history of nicotine dependence
CPT/HCPCS: A9270; J1885; J2270

== ENCOUNTER 2022-02-17 02:17 | Day surgery (SDC) | payer OTHER | END 2022-02-17 22:57 | disposition home or self-care (01) | LOC: WOUND 02:17 | DX: S81.802A Unspecified open wound, left lower leg, initial encounter (principal); I87.2 Venous insufficiency (chronic) (peripheral); I73.9 Peripheral vascular disease, unspecified; F17.210 Nicotine dependence, cigarettes, uncomplicated | CPT/HCPCS: 99406; A9270; G0463 ==

== ENCOUNTER 2022-02-21 03:12 | Day surgery (SDC) | payer OTHER | END 2022-02-21 23:12 | disposition home or self-care (01) | LOC: WOUND 03:12 | DX: I87.2 Venous insufficiency (chronic) (peripheral) (principal); I73.9 Peripheral vascular disease, unspecified | CPT/HCPCS: 99406; A9270 ==

== ENCOUNTER 2022-02-25 02:34 | Day surgery (SDC) | payer OTHER | END 2022-02-25 23:54 | disposition home or self-care (01) | LOC: WOUND 02:34 | DX: I87.2 Venous insufficiency (chronic) (peripheral) (principal); L97.822 Non-pressure chronic ulcer of other part of left lower leg with fat layer exposed; I87.312 Chronic venous hypertension (idiopathic) with ulcer of left lower extremity; Z72.0 Tobacco use | CPT/HCPCS: 99406; A9270 ==

== ENCOUNTER 2022-03-16 06:19 | Emergency (ER) | payer OTHER ==
[~2022-03-16] VITALS: Ht 152.4 cm; Wt 74.8 kg
[2022-03-16 06:42] LABS: BASOPHILS ABSOLUTE AUTO 0.05 K/mm3 (0.00-0.23); BASOPHILS PERCENT AUTO 1 % (0-2); EOSINOPHILS ABSOLUTE AUTO 0.17 K/mm3 (0.00-0.68); EOSINOPHILS PERCENT AUTO 2 % (0-6); Hematocrit 35.5 % (33.0-51.0); IMMATURE GRAN ABSOLUTE AUTO 0.04 K/mm3 (0.00-0.10); IMMATURE GRAN PERCENT AUTO 0 % (0-1); LYMPHOCYTES ABSOLUTE AUTO 2.24 K/mm3 (0.84-5.20); LYMPHOCYTES PERCENT AUTO 25 % (21-46); MONOCYTES ABSOLUTE AUTO 0.83 K/mm3 (0.16-1.47); MONOCYTES PERCENT AUTO 9 % (4-13); Mean Corpuscular HGB 30.2 pg (26.0-34.0); Mean Corpuscular HGB Conc 33.8 g/dL (31.5-36.5); Mean Corpuscular Volume 89 fL (80-100); Mean Platelet Volume 8.1 fL (9.1-12.4); NEUTROPHILS ABSOLUTE AUTO 5.77 K/mm3 (1.96-9.15); NEUTROPHILS PERCENT AUTO 64 % (41-73); Platelet Count 362 K/mm3 (150-400); RDW Standard Deviation 42.1 fL (35.1-46.3); Red Blood Cell Count 3.98 M/mm3 (3.80-5.20)
[2022-03-16 07:12] LABS: C-REACTIVE PROTEIN, EXT RANGE 5.05 mg/dL (0.000-0.300); Magnesium, Blood 2.6 mg/dL (1.6-2.4)
[2022-03-16 07:13] LABS: Albumin, Blood 2.7 g/dL (3.4-5.0); Albumin/Globulin Ratio 0.5 (0.8-1.8); Bilirubin, Total 0.3 mg/dL (0.1-1.0); Bun/Creatinine Ratio 14.6 (12.0-20.0); Calcium, Blood 8.6 mg/dL (8.5-10.1); Creatinine, Blood 0.69 mg/dL (0.40-1.00); Globulin, Blood 5.3 g/dL (2.2-4.0); Potassium, Blood 3.5 mmol/L (3.5-5.5)
[2022-03-16] MEDS ORDERED: DOXY100 PO ×2 (13:06)
[2022-03-16] MEDS ORDERED: Percocet 5-3251 EACH PO ×2 (13:08)
== END 2022-03-16 12:58 | disposition home or self-care (01) ==
LOC: ER 06:19
PROVIDERS: Student in an Organized Health Care Education/Training Program
DX: L03.116 Cellulitis of left lower limb (principal); L98.499 Non-pressure chronic ulcer of skin of other sites with unspecified severity; F17.210 Nicotine dependence, cigarettes, uncomplicated
CPT/HCPCS: 36415; 73701; 80053; 83605; 83735; 85025; 85651; 86140; A9270; J0713; J1170; J1885; J2270; J2405; J3370; J7030; J7050; Q9967

== ENCOUNTER 2022-03-16 12:43 | Day surgery (SDC) | payer OTHER ==
[2022-03-16] MEDS ORDERED: DOXY100 PO ×2 (13:06)
[2022-03-16] MEDS ORDERED: Percocet 5-3251 EACH PO ×2 (13:08)
== END 2022-03-16 22:56 | disposition home or self-care (01) ==
LOC: WOUND 12:43
DX: I87.2 Venous insufficiency (chronic) (peripheral) (principal); L97.822 Non-pressure chronic ulcer of other part of left lower leg with fat layer exposed; L97.825 Non-pressure chronic ulcer of other part of left lower leg with muscle involvement without evidence of necrosis
CPT/HCPCS: 99406; G0463

== ENCOUNTER 2022-03-23 08:00 | Day surgery (SDC) | payer OTHER ==
[~2022-03-23 08:00] MED LIST changes: +DOXY100 PO; +Percocet 5-3251 EACH PO
== END 2022-03-23 23:59 | disposition home or self-care (01) ==
LOC: WOUND 08:00
DX: I87.2 Venous insufficiency (chronic) (peripheral) (principal); L97.822 Non-pressure chronic ulcer of other part of left lower leg with fat layer exposed; L97.825 Non-pressure chronic ulcer of other part of left lower leg with muscle involvement without evidence of necrosis; I73.9 Peripheral vascular disease, unspecified; T81.49XA Infection following a procedure, other surgical site, initial encounter; L08.9 Local infection of the skin and subcutaneous tissue, unspecified; F17.200 Nicotine dependence, unspecified, uncomplicated
CPT/HCPCS: A9270; G0463

== ENCOUNTER 2022-04-01 01:25 | Day surgery (SDC) | payer OTHER | END 2022-04-01 23:11 | disposition home or self-care (01) | LOC: WOUND 01:25 | DX: Z53.21 Procedure and treatment not carried out due to patient leaving prior to being seen by health care provider (principal) ==

== ENCOUNTER → 2022-04-28 | Outpatient (CLI) | payer OTHER | END | disposition home or self-care (01) | LOC: LAB 11:07 → LAB SHORT 11:07 | DX: L03.116 Cellulitis of left lower limb (principal); L02.416 Cutaneous abscess of left lower limb | CPT/HCPCS: 87070; 87075; 87077; 87147; 87186; 87205 ==

== ENCOUNTER 2022-05-28 04:58 | Inpatient (IN) | payer OTHER ==
[~2022-05-28] VITALS: Ht 152.4 cm; Wt 74.3 kg
[2022-05-28 06:42] LABS: BASOPHILS ABSOLUTE AUTO 0.09 K/mm3 (0.00-0.23); BASOPHILS PERCENT AUTO 1 % (0-2); EOSINOPHILS ABSOLUTE AUTO 0.12 K/mm3 (0.00-0.68); EOSINOPHILS PERCENT AUTO 1 % (0-6); Hematocrit 38.5 % (33.0-51.0); Hemoglobin 13.3 g/dL (11.5-16.0); IMMATURE GRAN ABSOLUTE AUTO 0.04 K/mm3 (0.00-0.10); IMMATURE GRAN PERCENT AUTO 0 % (0-1); LYMPHOCYTES ABSOLUTE AUTO 2.67 K/mm3 (0.84-5.20); LYMPHOCYTES PERCENT AUTO 25 % (21-46); MONOCYTES ABSOLUTE AUTO 0.84 K/mm3 (0.16-1.47); MONOCYTES PERCENT AUTO 8 % (4-13); Mean Corpuscular HGB Conc 34.5 g/dL (31.5-36.5); Mean Corpuscular Volume 87 fL (80-100); Mean Platelet Volume 8.6 fL (9.1-12.4); NEUTROPHILS ABSOLUTE AUTO 6.96 K/mm3 (1.96-9.15); NEUTROPHILS PERCENT AUTO 65 % (41-73); Platelet Count 332 K/mm3 (150-400); RDW Standard Deviation 40.4 fL (35.1-46.3); Red Blood Cell Count 4.44 M/mm3 (3.80-5.20); White Blood Cell Count 10.72 K/mm3 (4.00-11.30)
[2022-05-28 07:03] LABS: Bun/Creatinine Ratio 15.5 (12.0-20.0); C-REACTIVE PROTEIN, EXT RANGE 0.947 mg/dL (0.000-0.300); Calcium, Blood 8.7 mg/dL (8.5-10.1); Creatinine, Blood 0.58 mg/dL (0.40-1.00)
[2022-05-28 09:26] VITALS: BP 130/80
[2022-05-28] MEDS ORDERED: IBUP800 PO (10:09)
--- NOTE | 2022-05-28 11:26 | NUR ---
PT HAS HAD INCREASING EYE PAIN SINCE ARRIVING. SHE STATES IN THE ED THEY GAVE HER SOME EYE DROPS THAT NUMBED HER EYE THAT REALLY HELPED. MAR SHOWS PT RECEIVED TETRACAINE GTTS. SPOKE WITH DR.. REYNOSO AND SHE OK'D PT TO CONTINUE TO HAVE THE GTTS, SEE ORDERS. ALSO SPOKE WITH DR. REYNOSO ABOUT CHANGING PT TO MEDICAL STATUS, BUT KEEPING HER IN ICU FOR THE FREQUENT MED ADMINISTRATION AND SHE AGREED.
--- NOTE | 2022-05-28 17:15 | NUR ---
SHIFT SUMMARY PT UP IN ROOM. ANSWERS QUESTIONS APPROPRIATELY AND FOLLOWS COMMANDS. PT ON RA. OPEN WOUND TO LEFT LOWER LEG, BANDAGED WITH XEROFORM AND KERLIX. LEFT EYE MILDLY SWOLLEN ON OUTSIDE, INSIDE RED AND IRRITATED. IN PT MEDICATED PER EMAR. DR DELANEY WITH OPTOMETRY EVALUATED PT. NO ACUTE CHANGES THIS SHIFT. WILL CONTINUE TO MONITOR AND GIVE REPORT TO ONCOMING RN.
--- NOTE | 2022-05-28 20:30 | NUR ---
UPDATE PT REQUESTED TO DRESS WOUND SELF. GAVE PT APPROPRIATE SUPPLIES.
--- NOTE | 2022-05-28 21:00 | NUR ---
ASSUMED CARE PT IS A&O X4. PT TOOK SHOWER, IS COOPERATIVE W/ CARE, AND HAS SPOUSE AT BEDSIDE. PT HAS EXPRESSED SEVERE ANXIETY ABOUT HOSPITAL STAYS D/T PREVIOUS INCIDENT AND HAS REQUESTED SPOUSE BE ABLE TO STAY OVERNIGHT. PHOTOGRAMMETRIC TECHNICIAN ADVISED TO PLAY IT BY EAR; PT'S SPOUSE IS QUIET AND DOES NOT INTERFERE W/ CARE. NO C/O OF CP, SOB, OR NAUSEA.
[2022-05-28 21:40] VITALS: BP 120/77
[2022-05-29 03:30] LABS: BASOPHILS ABSOLUTE AUTO 0.07 K/mm3 (0.00-0.23); BASOPHILS PERCENT AUTO 1 % (0-2); EOSINOPHILS ABSOLUTE AUTO 0.17 K/mm3 (0.00-0.68); EOSINOPHILS PERCENT AUTO 3 % (0-6); Hematocrit 39.7 % (33.0-51.0); Hemoglobin 13.2 g/dL (11.5-16.0); IMMATURE GRAN ABSOLUTE AUTO 0.04 K/mm3 (0.00-0.10); IMMATURE GRAN PERCENT AUTO 1 % (0-1); LYMPHOCYTES ABSOLUTE AUTO 2.01 K/mm3 (0.84-5.20); LYMPHOCYTES PERCENT AUTO 30 % (21-46); MONOCYTES ABSOLUTE AUTO 0.54 K/mm3 (0.16-1.47); MONOCYTES PERCENT AUTO 8 % (4-13); Mean Corpuscular HGB 29.9 pg (26.0-34.0); Mean Corpuscular HGB Conc 33.2 g/dL (31.5-36.5); Mean Corpuscular Volume 90 fL (80-100); Mean Platelet Volume 8.6 fL (9.1-12.4); NEUTROPHILS ABSOLUTE AUTO 3.92 K/mm3 (1.96-9.15); NEUTROPHILS PERCENT AUTO 58 % (41-73); Platelet Count 321 K/mm3 (150-400); RDW Standard Deviation 42.5 fL (35.1-46.3); Red Blood Cell Count 4.42 M/mm3 (3.80-5.20); White Blood Cell Count 6.75 K/mm3 (4.00-11.30)
[2022-05-29 03:50] LABS: Albumin/Globulin Ratio 0.6 (0.8-1.8); Bilirubin, Total 0.3 mg/dL (0.1-1.0); Bun/Creatinine Ratio 21.3 (12.0-20.0); Calcium, Blood 8.8 mg/dL (8.5-10.1); Creatinine, Blood 0.75 mg/dL (0.40-1.00); Potassium, Blood 4.1 mmol/L (3.5-5.5)
--- NOTE | 2022-05-29 05:59 | NUR ---
SHIFT SUMMARY PT IS A&O X4; RESTLESS T/O NIGHT, BUT WAS ABLE TO SLEEP A FEW HOURS AT A TIME PER PT. PT FREQUENTLY REQUESTS FOOD/BEVERAGES T/O NIGHT. HAS C/O OF PAIN IN LEFT LEG, WHICH ULTRAM WORKS BEST PER PT. PT STATES THAT, "SHE CAN SEE SHADOWS OUT OF LEFT EYE WITH A FOG THAT IS GETTING BETTER.". PT ALSO TOOK A SHOWER THE NEAR START OF SHIFT AND SELF-DRESSED HER WOUND. NO OTHER ACUTE EVENTS T/O NIGHT.
[2022-05-29 08:30] VITALS: BP 142/98
[2022-05-29 09:18] LABS: Vancomycin, Trough 14.4 ug/mL (5.0-10.0)
--- NOTE | 2022-05-29 15:43 | NUR ---
THIS MORNING PT STATED THAT HER SO WHO IS IN THE ROOM HASN'T BEEN FEELING GOOD. SHE SAYS HE WAS IN THE ED YESTERDAY WITH A STOMACH ULCER AND IS WORRIED ABOUT HIM. PT ADVISED THAT IF HE IS IN NEED OF MEDICAL CARE THAT HE NEEDS TO GO TO THE URGENT CARE OR ED. STAFF HERE CANNOT PROVIDE MEDICAL CARE TO HIM. PT THEN REQUESTED A GI COCKTAIL FOR HERSELF SO THAT SHE CAN GIVE IT TO HIM AND PT INFORMED THAT IS NOT ALLOWED. PT'S SO HAS REMAINED IN THE ROOM THROUGHOUT THE DAY AND PT HAS CONTINUED TO MAKE SMALL REMARKS ABOUT CONCERN FOR HIM AND EACH TIME SHE WAS REMINDED THAT HE NEEDS TO GO TO THE EMERGENCY ROOM OR URGENT CARE FOR MEDICAL NEEDS.
--- NOTE | 2022-05-29 16:39 | NUR ---
PT CAME TO DOOR AND REQUESTED HER SO BE TAKEN DOWN TO THE ED. PT'S SO TAKEN TO ED ADMITTING BY WC.
--- NOTE | 2022-05-29 17:37 | NUR ---
SHIFT SUMMARY PT UP IN ROOM, AMBULATES WITHOUT ASSISTANCE. PT ANSWERS QUESTIONS APPROPRIATELY AND FOLLOWS COMMANDS. OUTSIDE OF PT LEFT EYE SWOLLEN, INSIDE IS RED AND IRRITATED, MEDICATED PER EMAR. DR. ARAMBULA SAW PT THIS AFTERNOON AND RELAYED INFORMATION TO DR. REYNOSO. NO ACUTE CHANGES THIS SHIFT. WILL CONTINUE TO MONITOR AND GIVE REPORT TO ONCOMING RN.
[2022-05-29 20:55] VITALS: BP 134/89
[2022-05-30 00:14] VITALS: BP 132/83
[2022-05-30 03:14] VITALS: BP 122/87
[2022-05-30 03:20] LABS: BASOPHILS ABSOLUTE AUTO 0.07 K/mm3 (0.00-0.23); BASOPHILS PERCENT AUTO 1 % (0-2); EOSINOPHILS ABSOLUTE AUTO 0.17 K/mm3 (0.00-0.68); EOSINOPHILS PERCENT AUTO 2 % (0-6); Hematocrit 39.5 % (33.0-51.0); IMMATURE GRAN ABSOLUTE AUTO 0.04 K/mm3 (0.00-0.10); IMMATURE GRAN PERCENT AUTO 1 % (0-1); LYMPHOCYTES ABSOLUTE AUTO 2.11 K/mm3 (0.84-5.20); LYMPHOCYTES PERCENT AUTO 28 % (21-46); MONOCYTES ABSOLUTE AUTO 0.68 K/mm3 (0.16-1.47); MONOCYTES PERCENT AUTO 9 % (4-13); Mean Corpuscular HGB 29.7 pg (26.0-34.0); Mean Corpuscular HGB Conc 32.9 g/dL (31.5-36.5); Mean Corpuscular Volume 90 fL (80-100); Mean Platelet Volume 8.5 fL (9.1-12.4); NEUTROPHILS ABSOLUTE AUTO 4.58 K/mm3 (1.96-9.15); NEUTROPHILS PERCENT AUTO 60 % (41-73); Platelet Count 296 K/mm3 (150-400); RDW Standard Deviation 42.3 fL (35.1-46.3); Red Blood Cell Count 4.38 M/mm3 (3.80-5.20); White Blood Cell Count 7.65 K/mm3 (4.00-11.30)
[2022-05-30 03:39] LABS: Anion Gap Unable to Calculate mmol/L (6-16); Blood Urea Nitrogen 15 mg/dL (8-24); Bun/Creatinine Ratio 24.2 (12.0-20.0); CO2, Blood 31 mmol/L (21-32); Calcium, Blood 8.9 mg/dL (8.5-10.1); Chloride, Blood 106 mmol/L (98-108); Creatinine, Blood 0.62 mg/dL (0.40-1.00); Glomerular Filtration Rate 114 (60-); Glucose, Blood 106 mg/dL (70-99); Potassium, Blood 4.3 mmol/L (3.5-5.5); Sodium, Blood 136 mmol/L (136-145)
--- NOTE | 2022-05-30 05:35 | NUR ---
PATIENT AOX4 AND FOLLOWS COMMANDS. BP STABLE AND ON ROOM AIR. RESTED WELL OVERNIGHT AND NO CHANGES WITH VISION.
[2022-05-30 10:45] LABS: Vancomycin, Trough 16.3 ug/mL (5.0-10.0)
--- NOTE | 2022-05-30 13:51 | NUR ---
SUZAN HAS BEEN INDEPENDENT IN HER ROOM ALL SHIFT. SHE HAS BEEN TAUGHT HOW TO DO HER OWN EYE DROPS SO THAT SHE WILL BE ABLE TO DO THEM INDEPENDENTLY ONCE SHE IS DISCHARGED. PT'S S/O IS PRESENT IN THE ROOM, HE HAS BEEN MADE AWARE OF CURRENT PLAN OF CARE. AND DR. REYNOSO BOTH AGREED THAT THE PATIENT WOULD BENEFIT FROM STAYING ANOTHER NIGHT IN THE HOSPITAL, DOING THE ANTIBIOTIC DROPS Q2HRS OVERNIGHT. PT IS STILL AWAITING WOUND CONSULT FOR THE LEFT MOREIRA.
[2022-05-30 17:16] VITALS: BP 126/78
--- NOTE | 2022-05-30 18:38 | NUR ---
SUZAN HAS BEEN A/O, COOPERATIVE WITH CARE. SHE HAS STATED SOME IMPROVEMENT IN HER EYE THE DAY HAS GONE ON. SHE HAS BEEN SLEEPING AND WHEN NOT SLEEPING SHE IS EATING. SHE HAS MADE SEVERAL FOOD REQUESTS AND USUALLY EATS THEM ALL. SHE IS UP INDEPENDENTLY IN ROOM, ASKS FOR ANYTHING THAT SHE NEEDS. HER S/O WAS WITH HER FOR A COUPLE OF HOURS THIS AFTERNOON. SHE HAS BEEN USING THE TELEPHONE TO COMMUNICATE WITH FAMILY AND FRIENDS. SHE DOESN'T COMPLAIN AND SHE ASKED THAT SHE DO HER OWN DRESSING CHANGE ON HER MOREIRA. ALL SUPPLIES FOR HER ARE IN THE ROOOM. WE STILL ARE WAITING FOR INPATIENT WOUND TEAM TO SEE HER LEG.
[2022-05-30 20:32] VITALS: BP 142/95
[2022-05-31 00:11] VITALS: BP 137/93
[2022-05-31 04:01] VITALS: BP 129/95
--- NOTE | 2022-05-31 06:10 | NUR ---
SHIFT SUMMARY: Uneventful shift. Pt has been calm and cooperative and slept soundly for most of the night. When she wakes up, she requests snacks. Eye drops done Q2hrs, [id number] between midnight and 8AM due to pt sleeping (see MD order). She is independent in the room. I offered to change the dressing on her left leg and she refused, stating that she will change it herself.
[2022-05-31 08:15] VITALS: BP 135/96
--- NOTE | 2022-05-31 08:20 | NUR ---
ASSUMED CARE / DR REYNOSO: REPORT RECEIVED FROM [facility] [place] RN. ASSUMED CARE OF THIS PT AT APPROX 0700. ON ASSESSMENT, THE PT IS UPSET & HAS C/O PAIN TO HER LEFT EYE AND HEAD. SHE STS THE PAIN IS ACHING & SHARP AT TIMES. MEDS PER EMAR. LS CLEAR T/O, PT ON RA W/ O2 SATS > 95%. MEDICAL NO TELE STATUS, PULSES REGULAR & STRONG T/O, BP STABLE. PT HAS NO GI COMPLAINTS, TOLERATING PO INTAKE WELL. VOIDS URINE W/O DIFFICULTY. SKIN OVERALL INTACT. WOUND TO RIGHT MOREIRA IS CHRONIC & NEEDS THE DRESSING TO BE CHANGED. THE PT PREFERS TO DO THIS HERSELF & HAS NOT ALLOWED PULP ROLLER RN TO ASSIST HER W/ DRESSING CHANGE, PER REPORT. PT REPOSITIONS SELF FOR COMFORT PRN. DR REYNOSO AT BEDSIDE THIS AM TO EVAL PT. THE PLAN IS FOR DISCHARGE HOME TODAY & FOLLOW-UP W/ DR DELANEY, OPTHAMOLOGIST, THIS AFTERNOON. THIS RN IS TO CALL & VERIFY APPOINTMENT TIME FOR THE PT. PROVIDER HAS DISCUSSED EYE DROP REGIMEN & NEED FOR PT TO QUIT ETOH. PT VERBALIZES UNDERSTANDING. THIS RN HAS NOTIFIED PT THAT DRESSING TO RLE WOUND WILL NEED TO BE CHANGED PRIOR TO DISCHARGE. AIRLINE MECHANIC AT BEDSIDE SHORTLY AFTER & PT HAS ALLOWED FOR WOUND TO BE EVALUATED, CLEANSED & REDRESSED. WILL CONTINUE TO MONITOR & UPDATE NEEDED.
[2022-05-31] MEDS ORDERED: ATROPINE SULFATE5 M1 LEFTEYE (10:03)
[2022-05-31] MEDS ORDERED: FOLI1 PO (10:03)
[2022-05-31] MEDS ORDERED: HYDHCL25 PO (10:04)
[2022-05-31] MEDS ORDERED: MOXIOPS LEFTEYE (10:12)
[2022-05-31] MEDS ORDERED: TOBRADEX ST EYE5 M1 LEFTEYE (10:13)
[2022-05-31] MEDS ORDERED: VISBIOME 112.51 EACH PO (10:14)
[2022-05-31] MEDS ORDERED: LEVFLO500 PO (10:15)
--- NOTE | 2022-05-31 10:44 | NUR ---
Pt. is in bed and welcomes my visit. Friend is present. Pt. is being prepared for discharge. Pt. requested prayer for spiritual protection and healing. Pt. displayed some evidence of fear. Pastoral alcoholic counselor was given. Prayed with Pt. and friend. Pt. displayed evidence of engagement, but seemed guarded because of the presence of her friend. Pt. verbalized gratitude for the spiritual care visit.
--- NOTE | 2022-05-31 14:26 | NUR ---
DISCHARGE TO HOME: DISCHARGE COMPLETED & PT IS TAKEN OUT OF UNIT VIA WC AT APPROX 1420. THIS RN REMOVED PIV & PT HAS BEEN ABLE TO DRESS HERSELF W/O DIFFICULTY. CAB TRANSPORTATION TO FOLLOW-UP APPOINTMENT W/ DR BEATRICE DELANEY HAS BEEN ARRANGED BY [facility]ER [employer]. THE PT DENIES FURTHER QUESTIONS & VERBALIZES UNDERSTANDING OF NEED TO TAKE MEDICATIONS EXACTLY PRESCRIBED.
== END 2022-05-31 14:20 | disposition home or self-care (01) | DRG 121 ==
LOC: ER 04:58 → ICUW 04:59
PROVIDERS: Student in an Organized Health Care Education/Training Program; ADMIT Internal Medicine
DX: H16.032 Corneal ulcer with hypopyon, left eye (principal); E87.1 Hypo-osmolality and hyponatremia; L03.116 Cellulitis of left lower limb; H44.002 Unspecified purulent endophthalmitis, left eye; L97.929 Non-pressure chronic ulcer of unspecified part of left lower leg with unspecified severity; F10.20 Alcohol dependence, uncomplicated; F17.210 Nicotine dependence, cigarettes, uncomplicated; F15.10 Other stimulant abuse, uncomplicated; F41.9 Anxiety disorder, unspecified; B19.20 Unspecified viral hepatitis C without hepatic coma; B95.3 Streptococcus pneumoniae as the cause of diseases classified elsewhere; S05.02XA Injury of conjunctiva and corneal abrasion without foreign body, left eye, initial encounter; H16.012 Central corneal ulcer, left eye; F12.10 Cannabis abuse, uncomplicated; F43.10 Post-traumatic stress disorder, unspecified; Z79.899 Other long term (current) drug therapy; Z79.2 Long term (current) use of antibiotics; Z86.14 Personal history of Methicillin resistant Staphylococcus aureus infection; Z79.891 Long term (current) use of opiate analgesic; Z98.890 Other specified postprocedural states; X58.XXXA Exposure to other specified factors, initial encounter
CPT/HCPCS: 36415; 80048; 80053; 80202; 82550; 83605; 85025; 85651; 86140; 87070; 87186; 87205; 96365; 96375; 99284-25; A9270; G0378; J0713; J1885; J2270; J3370; J3411; J7050

== ENCOUNTER 2022-09-13 02:26 | Emergency (ER) | payer OTHER ==
[~2022-09-13] VITALS: Ht 152.4 cm; Wt 70.3 kg
[~2022-09-13 02:26] MED LIST changes: +ATROPINE SULFATE5 M1 LEFTEYE; +FOLI1 PO; +HYDHCL25 PO; +LEVFLO500 PO; +MOXIOPS LEFTEYE; +TOBRADEX ST EYE5 M1 LEFTEYE; +VISBIOME 112.51 EACH PO
[2022-09-13 03:10] LABS: BASOPHILS ABSOLUTE AUTO 0.06 K/mm3 (0.00-0.23); BASOPHILS PERCENT AUTO 1 % (0-2); EOSINOPHILS ABSOLUTE AUTO 0.14 K/mm3 (0.00-0.68); EOSINOPHILS PERCENT AUTO 1 % (0-6); Hematocrit 36.9 % (33.0-51.0); Hemoglobin 12.8 g/dL (11.5-16.0); IMMATURE GRAN ABSOLUTE AUTO 0.05 K/mm3 (0.00-0.10); IMMATURE GRAN PERCENT AUTO 1 % (0-1); LYMPHOCYTES ABSOLUTE AUTO 2.59 K/mm3 (0.84-5.20); LYMPHOCYTES PERCENT AUTO 24 % (21-46); MONOCYTES PERCENT AUTO 5 % (4-13); Mean Corpuscular HGB 31.1 pg (26.0-34.0); Mean Corpuscular HGB Conc 34.7 g/dL (31.5-36.5); Mean Corpuscular Volume 90 fL (80-100); Mean Platelet Volume 8.1 fL (9.1-12.4); NEUTROPHILS ABSOLUTE AUTO 7.59 K/mm3 (1.96-9.15); NEUTROPHILS PERCENT AUTO 69 % (41-73); Platelet Count 387 K/mm3 (150-400); RDW Coefficient Variation 12.4 % (11.7-14.2); RDW Standard Deviation 40.7 fL (35.1-46.3); Red Blood Cell Count 4.12 M/mm3 (3.80-5.20); White Blood Cell Count 11.03 K/mm3 (4.00-11.30)
[2022-09-13 03:29] LABS: Albumin, Blood 2.9 g/dL (3.4-5.0); Albumin/Globulin Ratio 0.5 (0.8-1.8); Bilirubin, Total 0.3 mg/dL (0.1-1.0); Bun/Creatinine Ratio 9.7 (12.0-20.0); Calcium, Blood 8.3 mg/dL (8.5-10.1); Creatinine, Blood 0.62 mg/dL (0.40-1.00); Globulin, Blood 5.7 g/dL (2.2-4.0); Potassium, Blood 3.5 mmol/L (3.5-5.5); Total Protein, Blood 8.6 g/dL (6.4-8.2)
[2022-09-13] MEDS ORDERED: SULTRIDS PO (03:49)
[2022-09-13] MEDS ORDERED: CEPHALEXIN500 M1 PO (03:49)
[2022-09-13 03:55] VITALS: BP 132/91
== END 2022-09-13 04:11 | disposition home or self-care (01) ==
LOC: ER 02:26
PROVIDERS: Student in an Organized Health Care Education/Training Program
DX: L03.116 Cellulitis of left lower limb (principal); Z79.899 Other long term (current) drug therapy; F17.210 Nicotine dependence, cigarettes, uncomplicated
CPT/HCPCS: 80053; 83605; 85025; 93005; 93010; 96365; 96375; 99283-25; J0690; J2270; J3370; J7120

== ENCOUNTER 2023-01-31 00:53 | Emergency (ER) | payer OTHER ==
[~2023-01-31] VITALS: Ht 152.4 cm; Wt 74.8 kg
[~2023-01-31 00:53] MED LIST changes: +CEPHALEXIN500 M1 PO
[2023-01-31 01:10] VITALS: BP 136/101
[2023-01-31] MEDS ORDERED: CEPH500 PO (03:19)
[2023-01-31] MEDS ORDERED: SULTRIDS PO (03:19)
== END 2023-01-31 03:45 | disposition home or self-care (01) ==
LOC: ER 00:53
DX: S81.802A Unspecified open wound, left lower leg, initial encounter (principal); Z86.14 Personal history of Methicillin resistant Staphylococcus aureus infection; F17.210 Nicotine dependence, cigarettes, uncomplicated; Z79.890 Hormone replacement therapy; Z79.899 Other long term (current) drug therapy; X58.XXXA Exposure to other specified factors, initial encounter
CPT/HCPCS: 96374; 96375; 99283-25; A9270; J0696; J1885

== ENCOUNTER → 2023-08-30 | Outpatient (CLI) | payer OTHER | END | disposition home or self-care (01) | LOC: LAB SHORT 17:57 | DX: L97.922 Non-pressure chronic ulcer of unspecified part of left lower leg with fat layer exposed (principal) | CPT/HCPCS: 87070; 87075; 87077; 87147; 87186; 87205 ==

== ENCOUNTER 2023-09-09 09:21 | Emergency (ER) | payer OTHER ==
[~2023-09-09] VITALS: Ht 152.4 cm; Wt 77.1 kg
[2023-09-09] MEDS ORDERED: Ketorolac Tromethamine 15mg Vial IV ONE (10:10)
[2023-09-09] MEDS ORDERED: Lactated Ringer's 1,000 ML IV ONE (10:15)
[2023-09-09 10:41] LABS: BASOPHILS ABSOLUTE AUTO 0.04 K/mm3 (0.00-0.23); BASOPHILS PERCENT AUTO 1 % (0-2); EOSINOPHILS ABSOLUTE AUTO 0.15 K/mm3 (0.00-0.68); EOSINOPHILS PERCENT AUTO 3 % (0-6); Hematocrit 35.9 % (33.0-51.0); Hemoglobin 12.1 g/dL (11.5-16.0); IMMATURE GRAN ABSOLUTE AUTO 0.01 K/mm3 (0.00-0.10); IMMATURE GRAN PERCENT AUTO 0 % (0-1); LYMPHOCYTES ABSOLUTE AUTO 1.75 K/mm3 (0.84-5.20); LYMPHOCYTES PERCENT AUTO 31 % (21-46); MONOCYTES ABSOLUTE AUTO 0.46 K/mm3 (0.16-1.47); MONOCYTES PERCENT AUTO 8 % (4-13); Mean Corpuscular HGB 31.7 pg (26.0-34.0); Mean Corpuscular HGB Conc 33.7 g/dL (31.5-36.5); Mean Corpuscular Volume 94 fL (80-100); Mean Platelet Volume 8.9 fL (9.1-12.4); NEUTROPHILS PERCENT AUTO 58 % (41-73); Platelet Count 284 K/mm3 (150-400); RDW Coefficient Variation 12.1 % (11.7-14.2); RDW Standard Deviation 42.1 fL (35.1-46.3); Red Blood Cell Count 3.82 M/mm3 (3.80-5.20); White Blood Cell Count 5.71 K/mm3 (4.00-11.30)
[2023-09-09 10:57] LABS: Albumin/Globulin Ratio 0.6 (0.8-1.8); Bilirubin, Total 0.3 mg/dL (0.1-1.0); Bun/Creatinine Ratio 13.3 (12.0-20.0); Calcium, Blood 8.2 mg/dL (8.5-10.1); Creatinine, Blood 0.68 mg/dL (0.40-1.00); Globulin, Blood 4.9 g/dL (2.2-4.0); Potassium, Blood 3.6 mmol/L (3.5-5.5); Total Protein, Blood 7.9 g/dL (6.4-8.2)
[2023-09-09] MEDS ORDERED: SULTRIDS PO (11:51)
[2023-09-09 12:00] VITALS: BP 129/95
== END 2023-09-09 12:31 | disposition home or self-care (01) ==
LOC: ER 09:21
PROVIDERS: Student in an Organized Health Care Education/Training Program
DX: S81.802A Unspecified open wound, left lower leg, initial encounter (principal); L03.116 Cellulitis of left lower limb; K04.7 Periapical abscess without sinus; K02.9 Dental caries, unspecified; X58.XXXA Exposure to other specified factors, initial encounter; Z79.899 Other long term (current) drug therapy; F17.210 Nicotine dependence, cigarettes, uncomplicated
CPT/HCPCS: 80053; 85025; J1885; J7120

== ENCOUNTER 2023-10-31 03:18 | Day surgery (SDC) | payer OTHER ==
[2023-10-31] MEDS ORDERED: Lidocaine HCl 4% Cream 5 GM ONE (13:09)
== END 2023-10-31 23:00 | disposition home or self-care (01) ==
LOC: WOUND 03:18
DX: L97.822 Non-pressure chronic ulcer of other part of left lower leg with fat layer exposed (principal); I87.2 Venous insufficiency (chronic) (peripheral); I73.9 Peripheral vascular disease, unspecified
CPT/HCPCS: A6213; A9270; G0463

== ENCOUNTER 2023-11-07 02:10 | Day surgery (SDC) | payer OTHER ==
[2023-11-07] MEDS ORDERED: Lidocaine HCl 4% Cream 5 GM ONE (14:27)
== END 2023-11-07 23:14 | disposition home or self-care (01) ==
LOC: WOUND 02:10
DX: L97.822 Non-pressure chronic ulcer of other part of left lower leg with fat layer exposed (principal); I87.2 Venous insufficiency (chronic) (peripheral); T81.30XA Disruption of wound, unspecified, initial encounter
CPT/HCPCS: A6213; A9270; G0463

== ENCOUNTER 2024-10-09 03:10 | Emergency (ER) | payer OTHER ==
[~2024-10-09] VITALS: Ht 152.4 cm; Wt 74.8 kg
[2024-10-09 03:50] VITALS: BP 137/94
[2024-10-09] MEDS ORDERED: Ibuprofen600 MG PO (04:37)
== END 2024-10-09 05:24 | disposition home or self-care (01) ==
LOC: ER 03:10
DX: S62.320A Displaced fracture of shaft of second metacarpal bone, right hand, initial encounter for closed fracture (principal); F17.210 Nicotine dependence, cigarettes, uncomplicated; W01.0XXA Fall on same level from slipping, tripping and stumbling without subsequent striking against object, initial encounter
CPT/HCPCS: 73130; 99283-25; A9270

== ENCOUNTER 2025-01-13 02:40 | Emergency (ER) | payer OTHER ==
[~2025-01-13] VITALS: Ht 152.4 cm; Wt 65.8 kg
[~2025-01-13 02:40] MED LIST changes: +Ibuprofen600 MG PO
[2025-01-13 04:30] VITALS: BP 129/85
[2025-01-13] MEDS ORDERED: METPRE4DP PO (04:36)
== END 2025-01-13 05:30 | disposition home or self-care (01) ==
LOC: ER 02:40
DX: L25.9 Unspecified contact dermatitis, unspecified cause (principal); F17.210 Nicotine dependence, cigarettes, uncomplicated; Z79.899 Other long term (current) drug therapy
CPT/HCPCS: 99282; J7512

== ENCOUNTER 2025-02-01 17:07 | Emergency (ER) | payer OTHER ==
[~2025-02-01] VITALS: Ht 152.4 cm; Wt 74.8 kg
[~2025-02-01 17:07] MED LIST changes: +METPRE4DP PO
[2025-02-01 17:47] VITALS: BP 159/99
[2025-02-01] MEDS ORDERED: HYDHCL25 PO ×2 (17:54→17:57)
== END 2025-02-01 17:55 | disposition home or self-care (01) ==
LOC: ER 17:07
DX: R21 Rash and other nonspecific skin eruption (principal); Z86.19 Personal history of other infectious and parasitic diseases; Z87.891 Personal history of nicotine dependence
CPT/HCPCS: 99282